=== PATIENT | female | born 1980 | race Caucasian/White ===

== ENCOUNTER 2023-01-01 13:17 | Emergency (ER) | payer OTHER ==
[~2023-01-01] VITALS: Ht 175.3 cm; Wt 90.3 kg
[2023-01-01 13:32] VITALS: BP_SYST 120
[2023-01-01 17:05] VITALS: BP_SYST 120
== END 2023-01-01 16:11 | disposition home or self-care (01) ==
LOC: SED 13:17
DX: H81.13 Benign paroxysmal vertigo, bilateral (principal); R51.9 Headache, unspecified; H57.89 Other specified disorders of eye and adnexa; Z79.899 Other long term (current) drug therapy
CPT/HCPCS: 70450-TC; 70480; 76376; 81025; 99284

== ENCOUNTER 2023-03-23 08:33 | Emergency (ER) | payer OTHER ==
[~2023-03-23] VITALS: Ht 175.3 cm; Wt 86.2 kg
[2023-03-23 08:48] VITALS: BP_SYST 124
[2023-03-23 09:16] LABS: BILIRUBIN,URINE NEGATIVE (NEGATIVE); CLARITY/URINE CLEAR (CLEAR); COLOR,URINE YELLOW (YELLOW); GLUCOSE,URINE NEGATIVE (NEGATIVE); KETONES,URINE NEGATIVE (NEGATIVE); LEUKOCYTE ESTERASE ,URINE TRACE (NEGATIVE); NITRITE, URINE NEGATIVE (NEGATIVE); PROTEIN URINE NEGATIVE (NEGATIVE); UROBILINOGEN,URINE 0.2 (0.2-1.0)
[2023-03-23 09:19] LABS: BLOOD, URINE TRACE (NEGATIVE)
[2023-03-23 09:22] LABS: BASOPHILS % (AUTO) 0.5 % (0.0-2.0); EOSINOPHILS # (AUTO) 0.1 K/uL (0.0-0.4); EOSINOPHILS % (AUTO) 1.7 % (0.0-4.0); HEMATOCRIT 39.5 % (36-48); HEMOGLOBIN 13.7 g/dL (12.0-16.0); MEAN CORPUSCULAR HEMOGLOBIN 29 pg (27-31); MEAN CORPUSCULAR HGB CONC 35 % (32-36); MEAN CORPUSCULAR VOLUME 85 fL (79.0-98.0); MONOCYTES # (AUTO) 0.3 K/uL (0.0-1.0); MONOCYTES % (AUTO) 8.2 % (1.7-9.3); NEUTROPHILS # (AUTO) 1.7 K/uL (1.8-7.7); NEUTROPHILS % (AUTO) 40.6 % (40.0-70.0); PLATELET COUNT (AUTO) 245 K/uL (130-430); RED BLOOD CELL COUNT(AUTO) 4.67 MIL/uL (4.2-6.2); RED CELL DISTRIBUTION WIDTH 13.3 % (9.0-15.0); WHITE BLOOD COUNT (AUTO) 4.1 K/uL (4.8-10.8)
[2023-03-23 09:27] LABS: BACTERIA,URINE RARE /HPF (None Seen)
[2023-03-23 09:40] LABS: ANION GAP 10 (5-15); CALCIUM 8.1 mg/dL (8.4-11.0); CHLORIDE 106 mmol/L (98-107); CREATININE 0.66 mg/dL (0.55-1.30); GFR AFRICAN AMERICAN 126 mL/min (>90); GLUCOSE 88 mg/dL (70-99); UREA NITROGEN, BLOOD 8 mg/dL (8-21)
[2023-03-23 09:45] LABS: ALANINE AMINOTRANSFERASE 12 U/L (12-78); ALBUMIN 3.7 g/dL (3.4-4.8); AMYLASE 33 U/L (0-100); ASPARTATE AMINOTRANSFERASE 11 U/L (10-37); LIPASE 165 U/L (73-393); TOTAL BILIRUBIN 0.3 mg/dL (0.0-1.0)
[2023-03-23 09:55] LABS: C-REACTIVE PROTEIN QUANT < 0.2 mg/dL (0-0.5)
[2023-03-23 10:44] VITALS: BP_SYST 101
== END 2023-03-23 10:43 | disposition home or self-care (01) ==
LOC: SED 08:33
DX: R10.31 Right lower quadrant pain (principal); Z88.1 Allergy status to other antibiotic agents
CPT/HCPCS: 36415; 76376; 80053; 81000; 81025; 82150; 83605; 83690; 84703; 85025; 86140; 99284